=== PATIENT | male | born 1990 | race Caucasian/White ===

== ENCOUNTER 2024-05-15 13:25 | Emergency (ER) | payer OTHER ==
[2024-05-15 13:36] VITALS: BP 144/81; PULSE 82; RESP 18; TEMP 98.6; BMI 29.2
[2024-05-15] MEDS ORDERED: predniSONE 20 MG TABLET (UD) ONE (14:19)
[2024-05-15] MEDS ORDERED: valACYclovir HCL 500 MG TABLET (FP) ONE (14:19)
[2024-05-15] MEDS: valACYclovir HCL 500 MG TABLET (FP) PO ONE (14:22)
[2024-05-15] MEDS: predniSONE 20 MG TABLET (UD) PO ONE (14:22)
== END 2024-05-15 14:27 | disposition home or self-care (01) ==
LOC: JER 13:25
DX: R21 Rash and other nonspecific skin eruption (principal); B02.8 Zoster with other complications
CPT/HCPCS: 99283-25